=== PATIENT | male | born 1995 | race Hispanic/Latino ===

== ENCOUNTER 2022-11-28 01:06 | Emergency (ER) | payer OTHER ==
[2022-11-28] MEDS ORDERED: METH4TAB3 PO (02:30)
== END 2022-11-28 01:09 | disposition home or self-care (01) ==
LOC: EDH 01:06
DX: Z04.3 Encounter for examination and observation following other accident (principal)

== ENCOUNTER 2022-11-28 01:06 | Emergency (ER) | payer OTHER ==
[~2022-11-28] VITALS: Ht 185.4 cm; Wt 108.9 kg
[2022-11-28 02:23] VITALS: BP 124/87
[2022-11-28] MEDS ORDERED: METH4TAB3 PO (02:30)
== END 2022-11-28 02:49 | disposition home or self-care (01) ==
LOC: EDH 01:06
DX: S50.12XA Contusion of left forearm, initial encounter (principal); M79.18 Myalgia, other site; V89.2XXA Person injured in unspecified motor-vehicle accident, traffic, initial encounter; Y93.89 Activity, other specified; Y92.89 Other specified places as the place of occurrence of the external cause; Y99.8 Other external cause status